=== PATIENT | female | born 1940 | race Caucasian/White ===

== ENCOUNTER 2018-02-23 08:51 | Inpatient (IN) | payer OTHER ==
[~2018-02-23] VITALS: Ht 152.4 cm; Wt 84.8 kg
[~2018-02-23 08:51] MED LIST: ACYCLOVIR 400400 M1 PO; ACYCLOVIR 400400 MG PO; ALLEGRA180 MG PO; ANASPAZ0.125 MG PO; ASPIRIN EC81 M1 PO; ATENOLOL 100MG100 M2 PO; ATENOLOL 25 MG25 M1 PO; ATORVASTATIN CA40 MG PO; ATORVASTATIN CA80 MG PO; CALCITONIN; CALCITONIN NASAL; CALCIUM ACETAT667 M2 PO; CLOTRIMAZOLE; CLOTRIMAZOLE 1%15 G1 TOP; COMBIVENT INH; COMBIVENT MDI; COZAAR 25 MG TA25 M1 PO; HYDRALAZINE 2525 MG PO; HYDROCHLOROTHIA25 M1 PO; HYDROXYZINE PAM25 M1 PO; HYZAAR 100-12.1 EACH PO; IMDUR 30 MG TAB30 M1 PO; KEFLEX500 MG PO; LISINOPRIL5 MG PO; MICARDIS HCT 81 EACH PO; MINIPRIN81 MG; NITROGLYCERIN0.4 MG SUBLING; NORCO 5-325 TA1 EACH PO; PLAVIX 75 MG TA75 M1 PO; PREDNISONE 10 M10 M1 PO; PRILOSEC 20 MG20 MG PO; SPIRIVA INH; TRAMADOL 50 MG50 MG PO; TRIAMCINOLONE A80 G2 TOP; VITAMIN D50000 UNIT PO; ZOVIRAX30 GM TOP
[2018-02-23 08:53] VITALS: BP 128/62
[2018-02-23 09:02] LABS: ABSOLUTE BASOPHILS 0.2 thou/uL (0.0-0.2); ABSOLUTE EOSINOPHILS 0.1 thou/uL (0.0-0.7); ABSOLUTE MONOCYTES 0.9 thou/uL (0.0-1.2); ABSOLUTE NEUTROPHILS 8.2 thou/uL (1.6-8.1); BASOPHILS 1.4 %; EOSINOPHILS 0.6 %; HEMATOCRIT 43.2 % (37.0-47.0); HEMOGLOBIN 14.4 gm/dL (12.0-15.0); LYMPHOCYTES 24.4 %; MCH 29.4 pg (26.0-34.0); MCHC 33.4 g/dL (28.0-37.0); MCV 88.3 fL (80.0-100.0); MPV 8.1 fl. (7.2-11.1); NUCLEATED RBCS 0 /100WBC; PLATELET COUNT* 329 thou/uL (150-400); POLYS 66.6 %; RBC 4.89 mil/uL (4.20-5.00); WBC 12.4 thou/uL (4.0-11.0)
[2018-02-23 09:11] LABS: ANION GAP 5 mmol/L (7-16); BUN 13 mg/dL (7-18); CHLORIDE 102 mmol/L (98-107); CO2 32 mmol/L (21-32); CREATININE 0.9 mg/dL (0.6-1.3); GLUCOSE 126 mg/dL (70-99); POTASSIUM 3.3 mmol/L (3.5-5.1); SODIUM 139 mmol/L (136-145)
[2018-02-23] MEDS ORDERED: HYZAAR 100-12.1 EACH PO (09:12)
[2018-02-23 09:21] LABS: ALBUMIN 3.2 g/dL (3.4-5.0); ALKALINE PHOSPHATASE 76 U/L (46-116); LIPASE 145 U/L (73-393); MAGNESIUM 1.8 mg/dL (1.8-2.4); NT-PRO BRAIN NAT PEPTIDE 144 pg/mL (<300); SGOT 16 U/L (15-37); SGPT 27 U/L (30-65); TOTAL BILIRUBIN 0.3 mg/dL (<0.1-1.0); TOTAL PROTEIN 6.7 g/dL (6.4-8.2); TROPONIN-I LEVEL <0.06 ng/mL (<0.06)
[2018-02-23 10:32] VITALS: BP 105/46
[2018-02-23 10:45] VITALS: BP 120/64
[2018-02-23 17:52] LABS: CALCIUM 9.2 mg/dL (8.5-10.1); CREATININE 1.1 mg/dL (0.6-1.3); MAGNESIUM 1.7 mg/dL (1.8-2.4); POTASSIUM 3.7 mmol/L (3.5-5.1)
[2018-02-23 20:00] VITALS: BP 133/69
[2018-02-23 23:30] VITALS: BP 133/61
[2018-02-24] VITALS (15 sets, daily range): BP systolic 82–127; BP diastolic 47–114
--- NOTE | 2018-02-24 07:19 | CON ---
[address] [address] CONSULTATION Name: JEFFY RITTER Room: [address] IN ..#: [id number] Admission: 02/23/18 Attend Phys: Tim Mera, Discharge: Date of : 42 Report #: [id number] THIS REPORT FOR: //name// CC: Natalie Morrow Patient's Chart Tim Mera DATE OF SERVICE: 02/23/2018 CARDIOLOGY CONSULTATION HISTORY OF PRESENT ILLNESS: The patient is a 77-year-old single white female who I was asked to see in the hospital after she complained of chest pain. The patient has an extensive past medical history. She had 2-vessel bypass surgery at [facility] when she is 54 years old. Recently, she has had multiple stents. Her first stent was placed in [address] Trinh. At the time of her bypass, she had a OBANDO graft to the LAD and a vein graft to the diagonal for a bifurcation lesion in the LAD. In 2011, Dr. Trinh placed 2 drug-eluting stents in the proximal circumflex artery. In 2016 in May, Dr. Villatoro placed 2 drug-eluting stents in the upper [place] right coronary artery. She did well until recently. She is now having frequent episodes of chest tightness. It is not necessarily related to exertion or meals. She describes a discomfort in her chest, it goes into her arms, make her short of breath, nauseated. She takes nitroglycerin that seems to help, but the pain comes back. Today, she had an episode of chest pain and she came to the Emergency Room for further evaluation and treatment. She denied any recent vomiting or diarrhea. She has had no recent bleeding. Denied any fever or cough. She did have a chill recently. She does get short of breath if she exerts herself, although she is not very active. She denied any palpitation or syncope. PAST MEDICAL AND SURGICAL HISTORY: Significant for removal of ovarian cyst, hysterectomy, hypertension, hyperlipidemia. MEDICATIONS: On admission consisted of atenolol, Isordil, losartan, acyclovir, Lipitor, Plavix. ALLERGIES: SHE HAS INTOLERANCE TO LOSARTAN, HYDROCODONE, AND HYDRALAZINE. FAMILY HISTORY: Her mother has heart disease. SOCIAL HISTORY: She is , lives in [place] by herself. She smokes a pack of cigarettes a day. No alcohol abuse. REVIEW OF SYSTEMS: She has had no history of stroke. She does have recurrent shingles. She has COPD. She is on nebulizer. No history of peptic ulcer disease, liver disease, kidney disease or cancer. [place] [address] CONSULTATION Name: JEFFY RITTER Room: [address]#: [id number] Admission: 02/23/18 Attend Phys: Tim Mera, Discharge: Date of : 42 Report #: [id number] psychiatric illness. PHYSICAL EXAMINATION: GENERAL: Revealed an elderly female who appeared in no acute distress. VITAL SIGNS: She had a blood pressure of 110/60, pulse 60. She is afebrile. HEENT: She was anicteric, conjunctiva pink. Mucous members moist. NECK: Veins difficult to assess. No carotid bruits. CHEST: Revealed expiratory wheezes. CARDIAC EXAMINATION: Regular rate and rhythm. ABDOMEN: Obese, soft, nontender. EXTREMITIES: Had no edema. Dorsalis pedis pulse cannot be palpated. SKIN: Cool and dry. NEUROLOGIC: Nonfocal. LABORATORY DATA: Her ECG showed a sinus rhythm with a left bundle branch block. Workup in the Emergency Room, she had sodium 139, creatinine 0.9. Liver function studies were normal. Troponin 0.06. White blood cell count 12.4, hemoglobin 14.4. She had a chest x-ray in the Emergency Room that showed no acute abnormality. IMPRESSION AND RECOMMENDATIONS: 1. Unstable angina. Recommend repeat cardiac catheterization. 2. Hypertension. The patient is on a beta lópez, ARB and diuretic. 3. Hyperlipidemia. The patient is on a statin drug. 4. Chronic obstructive pulmonary disease. 5. Tobacco abuse. 6. Obesity. 7. History of recurrent shingles. <ELECTRONICALLY SIGNED> By: Ozzie May MD, FACC 02/24/18 0719 1322 1959Ozzie May MD, FACC /nt
--- NOTE | 2018-02-24 17:06 | 2DMMODE ---
[place] [address] 2 D/M-MODE ECHOCARDIOGRAM Name: JEFFY RITTER Room: [address] IN [facility]#: [id number] Admission: 02/23/18 Attend Phys: Tim Moyer Discharge: Date of : 42 Date of Service: 02/24/18 1706 Report #: [id number] THIS REPORT FOR: //name// APPROVED REPORT Study performed: 02/24/2018 14:52:53 EXAM: Comprehensive 2D, Doppler, and color-flow Echocardiogram Patient Location: In-Patient Room #: [facility] Status: routine BSA: 1.76 HR: 54 bpm BP: 106/57 mmHg Rhythm: NSR Other Information Study Quality: Good Indications Chest Pain 2D Dimensions LVEF(%): 70.64 (>50%) IVSd: 11.87 (7-11mm) LVOT Diam: 17.39 (18-24mm) LVDd: 46.13 mm PWd: 8.75 (7-11mm) Ascending Ao: 31.23 (22-36mm) LVDs: 27.70 (25-40mm) Aortic Root: 30.93 mm Beverly's LVEF: 70.64 % Volumes Left Atrial Volume (Systole) LA ESV Index: 25.20 mL/m2 Aortic Valve AoV Peak Jasiel.: 1.53 m/s AO Peak Gr.: 9.41 mmHg LVOT Max P.43 mmHg AO Mean Gr.: 4.98 mmHg LVOT Mean P.07 mmHg LVOT Max V: 1.27 m/s AO V2 VTI: 34.63 cm LVOT Mean V: 0.81 m/s ARPITA (VTI): 2.03 cm2 LVOT V1 VTI: 29.59 cm Mitral Valve E/A Ratio: 0.86 [place] [address] 2 D/M-MODE ECHOCARDIOGRAM Name: JEFFY RITTER Room: [address] IN .R.#: [id number] Admission: 02/23/18 Attend Phys: Tim Moyer Discharge: Date of : 42 Date of Service: 02/24/18 1706 Report #: [id number] MV Decel. Time: 301.47 ms MV E Max Jasiel.: 0.82 m/s MV PHT: 87.43 ms MVA (PHT): 2.52 cm2 TDI E/Lateral E': 11.71 E/Medial E': 10.25 Medial E' Jasiel.: 0.08 m/s Lateral E' Jasiel.: 0.07 m/s Pulmonary Valve PV Peak Jasiel.: 0.95 m/s PV Peak Gr.: 3.57 mmHg Tricuspid Valve RAP Estimate: 5.00 mmHg TR Peak Gr.: 18.51 mmHg RVSP: 23.51 mmHg PA Pressure: 23.51 mmHg Left Ventricle The left ventricle is normal size. There is normal LV segmental wall motion. There is normal left ventricular wall thickness. Left ventricular systolic function is normal. The left ventricular ejection fraction is within the normal range. LVEF is 55-60%. Grade I - abnormal relaxation pattern. Right Ventricle The right ventricle is normal size. The right ventricular systolic function is normal. Atria The left atrium size is normal. The right atrium size is normal. Aortic Valve Mild aortic valve sclerosis. No aortic regurgitation is present. There is no aortic valvular stenosis. Mitral Valve There is mitral annular calcification. Trace mitral regurgitation. No evidence of mitral valve stenosis. Tricuspid Valve The tricuspid valve is normal in structure. Mild tricuspid regurgitation. No pulmonary hypertension[place] [address] 2 D/M-MODE ECHOCARDIOGRAM Name: JEFFY RITTER Room: [address] IN [facility]#: [id number] Admission: 02/23/18 Attend Phys: Tim Moyer Discharge: Date of : 42 Date of Service: 02/24/18 1706 Report #: [id number] The pulmonary valve is normal in structure. Trace pulmonic regurgitation. Great Vessels The aortic root is normal in size. IVC is normal in size and collapses with >50% inspiration Pericardium There is no pericardial effusion. <Conclusion> The left ventricle is normal size. There is normal left ventricular wall thickness. Left ventricular systolic function is normal. The left ventricular ejection fraction is within the normal range. LVEF is 55-60%. Grade I - abnormal relaxation pattern. The right ventricle is normal size. The left atrium size is normal. Mild aortic valve sclerosis. No aortic regurgitation is present. There is no aortic valvular stenosis. There is mitral annular calcification. Trace mitral regurgitation. The tricuspid valve is normal in structure. Mild tricuspid regurgitation. IVC is normal in size and collapses with >50% inspiration There is no pericardial effusion. There is normal LV segmental wall motion. <ELECTRONICALLY SIGNED> By: Jose L Villatoro MD, FACC 02/24/18 1706 05 05 Jose L Villatoro MD, FACC /INF
[2018-02-25 04:42] VITALS: BP 116/62
[2018-02-25 05:09] LABS: CALCIUM 7.9 mg/dL (8.5-10.1); CREATININE 0.7 mg/dL (0.6-1.3); POTASSIUM 3.8 mmol/L (3.5-5.1)
[2018-02-25 08:00] VITALS: BP 130/71
[2018-02-25 08:39] LABS: CHOLESTEROL 128 mg/dL (<200); HDL CHOLESTEROL 30 mg/dL (>40); LDL CHOLESTEROL 63 mg/dL (<100); TC:HDL 4.3 Ratio (Not establshd); TRIGLYCERIDE 179 mg/dL (<150); VLDL 36 mg/dL (<40)
[2018-02-25 08:41] LABS: SERUM ASSESSMENT Clear
[2018-02-25 10:02] VITALS: BP 130/71
[2018-02-25] MEDS ORDERED: PROTONIX40 M1 PO (10:08)
--- NOTE | 2018-02-25 11:35 | CARD ---
[address] [address] CARDIAC CATH REPORT Name: JEFFY RITTER Room: [address] IN [facility]#: [id number] Admission: 02/23/18 Attend Phys: Tim Mera, Discharge: Date of : 42 Report #: [id number] THIS REPORT FOR: //name// APPROVED REPORT Study performed: 02/24/2018 16:39:03 Patient Details Patient Status: In-Patient Room #: 221 The patient is a 77 year-old female Event Personnel Jose L Villatoro Safety Lead, Sonia Clifford RN Tax Audit Manager, Fanta Odell Monitor, Donald Bain Haley, Jessica RTJustus Monitor Procedures Performed Left heart catheterization selective coronary artery and OBANDO graft study Indication Chest pain Risk Factors Obesity, Chronic Lung DiseaseHypercholesterolemia, Hypertension, Diabetes Previous Procedures/Diagnoses Previous CABGPrevious PCI Procedure Narrative The patient was brought electively to the Cardiac Catheterization Laboratory and was prepped and draped in a sterile manner. The right femoral was infiltrated with 2% Lidocaine subcutaneous anesthesia. A 6fr Ultimum Sheath sheath was inserted into the right femoral artery. Coronary angiography was performed using coronary diagnostic catheters. The right coronary system was accessed and visualized with a 6fr JR 4 catheter. The left coronary system was accessed and visualized with a 6fr JL 4 catheter. The left ventricle was accessed and visualized with a 6fr pigtasil catheter. Left ventricular/Aortic Valve gradient assessed via catheter pullback. Pre-demployment femoral angiogram was performed . Closure device was deployed with a 6 Fr MynxGrip 6/7F. There was no hematoma. Intra[place] [address] CARDIAC CATH REPORT Name: JEFFY RITTER Room: [address] IN [facility]#: [id number] Admission: 02/23/18 Attend Phys: Tim Mera, Discharge: Date of : 42 Report #: [id number] Sedation start time: 17:10 Case end Time: 17:30 Fentanyl 25 mcg Versed 2 mg Fluoro Time: 3.7 minutes Dose: DAP 00148 cGycm2 568.75 mGy Contrast Type and Amount: Visipaque 135 ml Coronary Angiography The patient's coronary anatomy is right dominant. [place] Artery Percent Stenosis Grafts (Complete if Previous CABG=Yes: Percent Stenosis) #1 widely patent OBANDO graft to the LAD with 50% distal LAD narrowing Diagnostic Cath Left Main 0% narrowing LAD 100% proximal occlusion Circumflex 40% mid circumflex narrowing, this being a nondominant vessel Right Coronary Large dominant right coronary artery with widely patent mid right coronary and posterolateral branch stents. There is atheromatous debris in the distal right coronary artery without flow limitation Left Ventriculography Left Ventriculography was not performed. Hemodynamics The aortic pressure is 131/69 mmHg with a mean of 90 mmHg. The left ventricular pressure is 128/6 mmHg with a mean of mmHg. The left ventricular end diastolic pressure is 15 mmHg. There was no gradient across the aortic valve upon pullback. Conclusion #1 severe atherosclerotic coronary artery disease characterized by the following: A 100% proximal LAD occlusion B 40% narrowing of the midportion of the nondominant circumflex C large dominant right coronary artery with widely patent mid and posterolateral branch stents with atheromatous debris in the distal right coronary artery [place] [address] CARDIAC CATH REPORT Name: JEFFY RITTER Room: [address] IN ..#: [id number] Admission: 02/23/18 Attend Phys: Tim Mera, Discharge: Date of : 42 Report #: [id number] #2 widely patent OBANDO graft to the LAD with 50% distal LAD narrowing #3 mild elevation of left ventricular end-diastolic pressure at rest Recommendations Smoking Cessation Cardiac Risk Reduction Program Aggressive Medical Therapy Diagnostic Cath Approved by: Jose L Villatoro MD Date/Time: 02/25/18 and 1133 hrs. <ELECTRONICALLY SIGNED> By: Jose L Villatoro MD, [facility] 02/25/18 1134 1134 1134John Bettina Villatoro MD, FACC /INF
--- NOTE | 2018-02-25 13:28 | EKG ---
[place] [address] ELECTROCARDIOGRAM REPORT Name: JEFFY RITTER Room: [address]#: [id number] Admission: 02/23/18 Attend Phys: Tim Mera, Discharge: 02/25/18 Date of : 42 Report #: [id number] THIS REPORT FOR: //name// [facility] Test Date: 2018-02-23 Test Time: 08:55:44 Pat Name: JEFFY SCHMITTINLEY Department: Room: Gender: Auditor/Quality: Esperanza RODRIGUEZ : 1940 Requested By: Gabino Parker Order Number: [id number] MD: Kendrick Blanco Measurements Intervals Gatzke Rate: 72 P: 7 NH: 177 QRS: -19 QRSD: 155 T: 138 QT: 437 QTc: 479 Interpretive Statements Sinus rhythm Left bundle branch block Compared to ECG 07/26/2017 10:35:25 No significant changes Electronically Signed On 02-25-2018 13:27:56 CDT by Kendrick Blanco [email or web address] <ELECTRONICALLY SIGNED> By: Kendrick Blanco MD, [facility] 02/25/18 1327 0855 0855 Kendrick Blanco MD, [facility] /EPI
== END 2018-02-25 11:50 | disposition home or self-care (01) | DRG 287 ==
LOC: M.ERS 08:51 → M.2W 10:01 → M.TBA-ER 10:01 → M.2W 10:41
PROVIDERS: Emergency Medicine Emergency Medical Services; Internal Medicine; Nurse Practitioner Family; ADMIT Family Medicine
PROC: 4A023N7 Measurement of Cardiac Sampling and Pressure, Left Heart, Percutaneous Approach (ICD-10-PCS; principal; 2018-02-24)
PROC: B2111ZZ Fluoroscopy of Multiple Coronary Arteries using Low Osmolar Contrast (ICD-10-PCS; 2018-02-24)
PROC: B2181ZZ Fluoroscopy of Left Internal Mammary Bypass Graft using Low Osmolar Contrast (ICD-10-PCS; 2018-02-24)
PROC: B41F1ZZ Fluoroscopy of Right Lower Extremity Arteries using Low Osmolar Contrast (ICD-10-PCS; 2018-02-24)
DX: I25.110 Atherosclerotic heart disease of native coronary artery with unstable angina pectoris (principal); I50.32 Chronic diastolic (congestive) heart failure; I10 Essential (primary) hypertension; J44.9 Chronic obstructive pulmonary disease, unspecified; M81.0 Age-related osteoporosis without current pathological fracture; F17.210 Nicotine dependence, cigarettes, uncomplicated; E78.5 Hyperlipidemia, unspecified; I25.82 Chronic total occlusion of coronary artery; E11.9 Type 2 diabetes mellitus without complications; E66.9 Obesity, unspecified; Z88.1 Allergy status to other antibiotic agents; Z91.030 Bee allergy status; Z88.2 Allergy status to sulfonamides; Z91.048 Other nonmedicinal substance allergy status; Z79.899 Other long term (current) drug therapy; Z90.710 Acquired absence of both cervix and uterus; Z95.1 Presence of aortocoronary bypass graft; Z90.89 Acquired absence of other organs; I25.2 Old myocardial infarction; Z95.5 Presence of coronary angioplasty implant and graft; Z82.49 Family history of ischemic heart disease and other diseases of the circulatory system; Z68.36 Body mass index [BMI] 36.0-36.9, adult